=== PATIENT | male | born 1975 ===

== ENCOUNTER 2020-11-03 16:13 | Emergency (ER) | payer SELFPAY ==
[2020-11-03 16:24] VITALS: BP 146/95
[2020-11-03] MEDS ORDERED: DIPHtheria,PERTUSSIS(ACELL),TETANUS VACCINE/PF 0.5 ML VIAL IM ONE (17:20)
[2020-11-03] MEDS ORDERED: NEOMY 3.5 MG/BACIT 400 UNITS/POLY B 5000 UNITS/GM OINT PACKET TP ONE (17:21)
[2020-11-03] MEDS ORDERED: IBUPROFEN 600 MG TAB PO ONE (17:21)
--- NOTE | 2020-11-03 17:26 | Emergency Department Report ---
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 He has bruising and abrasion and bite machado to the left lateral forearm no active bleeding. Patient is does not know when his last tetanus was. He reports that the customers dog's shots were all up-to-date. Patient in no acute distress MD Complaint: animal bite -: Sudden, hour(s) (2 PM today) Location: other (Left lateral forearm) Left: Arm Animal: dog Description: household pet, immunizations UTD Mechanism: bite, contact with mucous membr Context: unprovoked Associated Symptoms: none - Related Data Patient Tetanus UTD: No Previous Rx's Medication Instructions Recorded Last Taken Type Amoxicillin/Potassium Clav 1 each PO Q12H 14 Days #7 tablet 11/03/20 Unknown Rx [Augmentin 875-125 Tablet] Allergies Allergy/AdvReac Type Severity Reaction Status Date / Time No Known Allergies Allergy Verified 11/03/20 16:19 ED Review of Systems ROS: Stated complaint: DOG BITE Other details as noted in HPI Comment: All other systems reviewed and negative Constitutional: denies: chills, fever Eyes: denies: eye pain, eye discharge Respiratory: denies: cough, shortness of breath, SOB with exertion Cardiovascular: denies: chest pain, palpitations, edema, paroxysmal nocturnal dyspnea Endocrine: denies: excessive sweating Gastrointestinal: denies: abdominal pain, constipation Genitourinary: denies: urgency, frequency Skin: other (Bite machado noted to the left lateral forearm positive bruising and abrasion no active bleeding). denies: rash, change in color Neurological: denies: headache, numbness, abnormal gait ED Past Medical Hx - Past Medical History Previous Medical History?: No - Surgical History Past Surgical History?: No - Social History Smoking Status: Never Smoker Substance Use Type: None - Medications Home Medications: Home Medications Medication Instructions Recorded Confirmed Last Taken Type Amoxicillin/Potassium Clav 1 each PO Q12H 14 Days #7 tablet 11/03/20 Unknown Rx [Augmentin 875-125 Tablet] ED Physical Exam - General Limitations: No Limitations General appearance: alert, in no apparent distress - Head Head exam: Present: atraumatic - Eye Eye exam: Present: normal appearance - ENT ENT exam: Present: normal exam - Neck Neck exam: Present: normal inspection - Respiratory Respiratory exam: Present: normal lung sounds bilaterally. Absent: respiratory distress - Cardiovascular Cardiovascular Exam: Present: regular rate, normal heart sounds - Extremities Exam Extremities exam: Present: full ROM, tenderness, other (Left lateral forearm bite marcellus noted abrasion noted there is some ecchymosis but no active bleeding) - Back Exam Back exam: Present: normal inspection - Neurological Exam Neurological exam: Present: alert, oriented X3 - Psychiatric Psychiatric exam: Present: normal affect - Skin Skin exam: Present: warm, dry, abrasion, ecchymosis ED Course Vital Signs 11/03/20 11/03/20 11/03/20 16:20 16:24 17:38 Temperature 98 F 98 F Pulse Rate 112 H 112 H Respiratory 20 20 18 Rate Blood Pressure 146/95 Blood Pressure 146/95 [Left] O2 Sat by Pulse 99 99 Oximetry - Reevaluation(s) Reevaluation #1: 11/03/20 17:51 Patient was able to call family member at home and she confirmed that patient immunizations are all up-to-date Critical Care Time: No Critical care attestation.: If time is entered above; I have spent that time in minutes in the direct care of this critically ill patient, excluding procedure time. ED Disposition Clinical Impression: Dog bite of left forearm Qualifiers: Encounter type: initial encounter Qualified Code(s): S51.852A - Open bite of left forearm, initial encounter Disposition: TO HOME OR SELFCARE Is pt being admited?: No Does the pt Need Aspirin: No Condition: Stable Instructions: Animal Bite, Adult, [id number] Additional Instructions: Keep wound clean and dry washing daily with soap and water okay to apply Neosporin ointment on the site. Take antibiotic as prescribed follow-up immediately if you have increasing swelling pain redness or drainage or fever Prescriptions: Amoxicillin/Potassium Clav [Augmentin 875-125 Tablet] 1 each PO Q12H 14 Days #7 tablet Referrals: DEBRA CALLAWAY MD [Primary Care Provider] - 3-5 Days FELA BYRNE MD [Staff Physician] - 3-5 Days Time of Disposition: 17:28
== END 2020-11-03 18:18 | disposition home or self-care (01) ==
LOC: ED 16:13
DX: S51.852A Open bite of left forearm, initial encounter (principal); Z79.899 Other long term (current) drug therapy; W54.0XXA Bitten by dog, initial encounter; Y93.89 Activity, other specified; Y92.89 Other specified places as the place of occurrence of the external cause; Y99.8 Other external cause status
CPT/HCPCS: 90471; 90715; 99282; A6250